=== PATIENT | female | born 1970 | race Caucasian/White ===

== ENCOUNTER 2016-07-21 10:16 | Emergency (ER) | payer OTHER ==
[2016-07-21 10:21] VITALS: RESP 16; TEMP 98.1
[2016-07-21] MEDS ORDERED: NS 1,000 ML IV ONE (10:35)
[2016-07-21 10:42] LABS: % IMMATURE GRANULYOCYTES 0.4 % (0.0-1.1); ABSOLUTE IMMATURE GRANULOCYTES 0.03 10^3/uL (0.00-0.10); ADD DIFF? NO; ADD MORPH? NO; ADD SCAN? NO; ATYPICAL LYMPHOCYTE FLAG 20 (0-99); FRAGMENT RBC FLAG 0 (0-99); HEMATOCRIT 42.6 % (38.0-47.0); HEMOGLOBIN 13.9 g/dL (12.6-16.3); LEFT SHIFT FLG 0 (0-99); LIPEMIA HEMOLYSIS FLAG 80 (0-99); MEAN CELL HEMOGLOBIN 28.1 pg (27.9-34.1); MEAN CELL HEMOGLOBIN CONCENTR. 32.6 g/dL (32.4-36.7); MEAN CELL VOLUME 86.2 fL (81.5-99.8); MEAN PLATELET VOLUME 10.9 fL (8.7-11.7); PLATELET CLUMPS FLAG 0 (0-99); PLATELET COUNT 294 10^3/uL (150-400); RED BLOOD CELL COUNT 4.94 10^6/uL (4.18-5.33); RED CELL DISTRIBUTION WIDTH 13.7 % (11.5-15.2)
[2016-07-21 10:53] LABS: ALANINE AMINOTRANSFERASE 60 IU/L (9-52); ALKALINE PHOSPHATASE 89 IU/L (38-126); ANION GAP 9 mEq/L (8-16); ASPARTATE AMINOTRANSFERASE 39 IU/L (14-46); BILIRUBIN,TOTAL 0.8 mg/dL (0.1-1.4); BILIRUBIN-CONJUGATED 0.3 mg/dL (0.0-0.5); BILIRUBIN-UNCONJUGATED 0.5 mg/dL (0.0-1.1); CALCIUM 9.1 mg/dL (8.5-10.4); CARBON DIOXIDE 25 mEq/l (22-31); CHLORIDE 106 mEq/L (97-110); CREATININE 0.6 mg/dL (0.6-1.0); GLOMERULAR FILTRATION RATE > 60; GLUCOSE 87 mg/dL (70-100); POTASSIUM 4.1 mEq/L (3.5-5.2); SODIUM 140 mEq/L (134-144); TOTAL PROTEIN 7.2 g/dL (6.3-8.2)
[2016-07-21] MEDS ORDERED: ONDANSETRON 4 MG/2 ML VIAL ONE (11:34)
[2016-07-21] MEDS ORDERED: ONDANSETRON 4 MG/2 ML VIAL IVP ONE (11:37)
--- NOTE | 2016-07-21 11:51 | US ---
Sonography Limited to the Right Upper Quadrant of the Abdomen Clinical History: 46-year-old female in the Emergency Department complaining of right upper quadrant pain for 5 days. Rule out cholelithiasis. Technique: A curvilinear 5 MHz transducer was used to sonographically evaluate the right upper quadra nt of the abdomen. Color Doppler was also used. Comparison Study: Contrast-enhanced CT scan of the abdomen, dated July 14, 2014. Findings: The pancreatic contour is normal with limited assessment of the pancreatic tail, secondary to overlying bowel gas. The abdominal aorta is normal in size, and tapers normally. The visualized I VC is normal in caliber. The hepatic vein trifurcation is normal, and the main portal vein is patent. There is no ascites or right pleural effusion. The liver is normal in size, measuring 13.5 cm along the right midaxillary line, and there is mild diffuse increased echogenicity, consistent with steatos is. In the inferior right hepatic lobe, there is a stable-appearing rounded anechoic cyst with throug h-transmission, measuring 1.1 x 1.5 x 1.4 cm. There is no intrinsic vascularity. There is no intra or extrahepatic bile duct dilatation. The common bile duct measures 3.4 mm. The gallbladder is moderate ly distended, with no stones, sludge, wall thickening, pericholecystic fluid, or sonographic Galarza s ign. The right kidney is normal, measuring 10.2 x 5.2 x 5.2 cm. The renal cortical thickness is 1.2 c m. There is no hydronephrosis or focal renal mass. Impression: 1. Mild diffuse hepatic steatosis with a stable simple-appearing 1.5-cm cyst in the inferior right he patic lobe, which was seen on previous CT imaging in June 2014. 2. Normal appearance to the gallbladder. If there is further clinical concern regarding potential gallbladder dyskinesia, a nuclear medicine h epatobiliary scan and gallbladder ejection fraction could be considered. Results were discussed with Dr. William Lira. A Document Only message has been documented for William Lira in the [employer] system on 07/21/2016 11:44, Message ID [id number].
[2016-07-21] MEDS ORDERED: HYDROCODONE/APAP 5/325 TAB ONE (12:27)
--- NOTE | 2016-07-21 12:27 | EDPHY ---
H & P Stated Complaint: 4 days ruq abd pain Time Seen by Provider: 07/21/16 10:25 HPI/ROS: CHIEF COMPLAINT: Diarrhea, right upper quadrant pain HISTORY OF PRESENT ILLNESS: The patient presents to the ED for evaluation of 4 days of right upper quadrant pain and diarrhea. The patient denies recent antibiotic usage. She does have a history of irritable bowel syndrome. Patient denies dysuria. The patient denies nausea or vomiting. She reports moderate pain that is worsened with movement in her right upper quadrant. She denies additional complaints. The patient does have a past surgical history noteworthy for appendectomy. REVIEW OF SYSTEMS: A comprehensive 10 point review of systems is otherwise negative aside from elements mentioned in the history of present illness. Source: Patient Exam Limitations: No limitations - Personal History LMP (Females 10-55): 22-28 Days Ago Current Tetanus/Diphtheria Vaccine: Yes - Medical/Surgical History Hx Asthma: No Hx Chronic Respiratory Disease: No Hx Diabetes: No Hx Cardiac Disease: No Hx Renal Disease: No Hx Cirrhosis: No Hx Alcoholism: No Hx HIV/AIDS: No Hx Splenectomy or Spleen Trauma: No Other PMH: FIBROMYALGIA HTN SCIATICA IRRITABLE BOWEL CHRONIC FATIGUE/appy - Social History Smoking Status: Never smoked Alcohol Use: None Drug Use: None - Physical Exam Exam: General Appearance: Alert, no distress Eyes: Pupils equal and round no pallor or injection ENT, Mouth: Mucous membranes moist Respiratory: There are no retractions, lungs are clear to auscultation Cardiovascular: Regular rate and rhythm Gastrointestinal: Minimal tenderness to palpation right upper quadrant, no peritoneal signs Neurological: A&O, normal motor function, normal sensory exam, normal cranial nerves Skin: Warm and dry, no rashes Musculoskeletal: Neck is supple nontender Extremities: symmetrical, full range of motion Psychiatric: Patient is oriented X 3, there is no agitation Constitutional: Initial Vital Signs Temperature (C) 36.7 C 07/21/16 10:19 Heart Rate 60 07/21/16 10:19 Respiratory Rate 16 07/21/16 10:19 Blood Pressure 122/88 H 07/21/16 10:19 O2 Sat (%) 98 07/21/16 10:19 O2 Delivery Mode Room Air Allergies/Adverse Reactions: Sulfa (Sulfonamide Antibiotics) Allergy (Verified 07/21/16 10:17) Home Medications: Medication Instructions Recorded Atenolol [Tenormin] 100 mg PO DAILY 07/14/14 Cholecalciferol (Vitamin D3) 5,000 unit PO DAILY 07/14/14 [Vitamin D3] Cyclobenzaprine [Flexeril] 10 mg PO HS 07/14/14 Gabapentin [Neurontin 300 MG (RX)] 300 mg PO BID@09,13 07/14/14 Gabapentin [Neurontin 300 MG (RX)] 600 mg PO HS 07/14/14 Herbals/Supplements -Info Only 1 ea PO DAILY 07/14/14 Loratadine [Claritin 10 mg] 10 mg PO DAILY PRN 07/14/14 Multivitamins [Tab-A-Luna] 1 each PO DAILY 07/14/14 PARoxetine HCL [Paxil 10mg (RX)] 10 mg PO HS 07/14/14 Hydrocodone/APAP 5/325 [Oketo 1 - 2 each PO Q6 PRN #20 tab 07/21/16 5/325] Ondansetron Odt [Zofran Odt] 4 mg PO Q4PRN PRN #20 tab 07/21/16 Medical Decision Making ED Course/Re-evaluation: The patient had an IV established. She received a L of normal saline. She received IV Zofran and morphine. Given her right upper quadrant tenderness a ultrasound was ordered which demonstrates no evidence of cholelithiasis or cholecystitis. The patient's liver function tests, lipase and electrolytes are within normal limits. The patient did have serial examinations in the ED. She presents to the ED with abdominal pain and diarrhea. She is afebrile well-appearing. At this point time I will treat her for gastroenteritis with pain medications and give her customary aftercare instructions. The patient will be discharged home. She is advised to follow up with Gastroenterology for any ongoing abdominal complaints. She is given customary return precautions. Differential Diagnosis: Differential diagnosis considered includes cholecystitis, cholelithiasis, pancreatitis, gastroenteritis, irritable bowel syndrome, inflammatory bowel disease - Data Points Laboratory Results: Laboratory Results 07/21/16 10:31 07/21/16 10:31 07/21/16 10:31 WBC 8.26 10^3/uL (3.80-9.50) RBC 4.94 10^6/uL (4.18-5.33) Hgb 13.9 g/dL (12.6-16.3) Hct 42.6 % (38.0-47.0) MCV 86.2 fL (81.5-99.8) MCH 28.1 pg (27.9-34.1) MCHC 32.6 g/dL (32.4-36.7) RDW 13.7 % (11.5-15.2) Plt Count 294 10^3/uL (150-400) MPV 10.9 fL (8.7-11.7) Neut % (Auto) 64.4 % (39.3-74.2) Lymph % (Auto) 25.9 % (15.0-45.0) [place] % (Auto) 6.3 % (4.5-13.0) Eos % (Auto) 2.4 % (0.6-7.6) Baso % (Auto) 0.6 % (0.3-1.7) Nucleat RBC Rel Count 0.0 % (0.0-0.2) Absolute Neuts (auto) 5.32 10^3/uL (1.70-6.50) Absolute Lymphs (auto) 2.14 10^3/uL (1.00-3.00) Absolute Monos (auto) 0.52 10^3/uL (0.30-0.80) Absolute Eos (auto) 0.20 10^3/uL (0.03-0.40) Absolute Basos (auto) 0.05 10^3/uL (0.02-0.10) Absolute Nucleated RBC 0.00 10^3/uL (0-0.01) Immature Gran % 0.4 % (0.0-1.1) Immature Gran # 0.03 10^3/uL (0.00-0.10) Sodium 140 mEq/L (134-144) Potassium 4.1 mEq/L (3.5-5.2) Chloride 106 mEq/L (97-110) Carbon Dioxide 25 mEq/l (22-31) Anion Gap 9 mEq/L (8-16) BUN 10 mg/dL (7-23) Creatinine 0.6 mg/dL (0.6-1.0) Estimated GFR > 60 Glucose 87 mg/dL (70-100) Calcium 9.1 mg/dL (8.5-10.4) Total Bilirubin 0.8 mg/dL (0.1-1.4) Conjugated Bilirubin 0.3 mg/dL (0.0-0.5) Unconjugated Bilirubin 0.5 mg/dL (0.0-1.1) AST 39 IU/L (14-46) ALT 60 H IU/L (9-52) Alkaline Phosphatase 89 IU/L (38-126) Total Protein 7.2 g/dL (6.3-8.2) Albumin 4.0 g/dL (3.5-5.0) Lipase 68.0 IU/L (23-300) Medications Given: Discontinued Medications Sodium Chloride (Ns) 1,000 mls @ 0 mls/hr IV ONCE ONE PRN Reason: Wide Open Stop: 07/21/16 10:36 Last Admin: 07/21/16 10:40 Dose: 1,000 mls Morphine Sulfate (Morphine) 2 mg IVP EDNOW ONE Stop: 07/21/16 11:38 Last Admin: 07/21/16 11:40 Dose: 2 mg Ondansetron HCl (Zofran) 4 mg IVP EDNOW ONE Stop: 07/21/16 11:38 Last Admin: 07/21/16 11:40 Dose: 4 mg Departure - Departure Disposition: Home, Routine, Self-Care Clinical Impression: Abdominal pain, Diarrhea Condition: Good Instructions: Gastroenteritis (ED) Additional Instructions: 1. Take Imodium as needed for diarrhea. 2. Zofran as needed for nausea. 3. Oketo as needed for pain 4. Please follow up with a circuit board inspector you have been referred to for further evaluation of your symptoms. 5. Please follow-up with your primary care provider as scheduled. Referrals: Etta Pelaez MD [Primary Care Provider] - As per Instructions James Tellez MD [Medical Doctor] - As per Instructions
[2016-07-21 12:38] VITALS: BP 125/82; PULSE 61; O2SAT 92
== END 2016-07-21 12:37 | disposition home or self-care (01) ==
DX: R10.11 Right upper quadrant pain (principal); R19.7 Diarrhea, unspecified; I10 Essential (primary) hypertension
CPT/HCPCS: 96374; J2405

== ENCOUNTER 2017-08-28 10:25 | Day surgery (SDC) | payer OTHER ==
[2017-08-28] MEDS ORDERED: LR 1,000 ML IV ONE (10:47)
[2017-08-28 11:06] VITALS: PULSE 77
[2017-08-28] MEDS ORDERED: PROPOFOL 200 MG/20 ML VIAL ONE (11:55)
[2017-08-28] MEDS ORDERED: PROPOFOL/EMULSION 500 MG/50 ML BOTTLE IV ONE (11:55)
[2017-08-28] MEDS ORDERED: LIDOCAINE 2% 5 ML SDV ONE (11:55)
--- NOTE | 2017-08-28 11:57 | PDANEPAE ---
ANE History of Present Illness EGD, colonoscopy ANE Past Medical History - Cardiovascular History Hx Hypertension: Yes Hx Arrhythmias: No Hx Chest Pain: No Hx Coronary Artery / Peripheral Vascular Disease: No Hx CHF / Valvular Disease: No Hx Palpitations: No - Pulmonary History Hx COPD: No Hx Asthma/Reactive Airway Disease: No Hx Recent Upper Respiratory Infection: No Hx Oxygen in Use at Home: No Hx Sleep Apnea: No Sleep Apnea Screening Result - Last Documented: Negative - Neurologic History Hx Cerebrovascular Accident: No Hx Seizures: No Hx Dementia: No - Endocrine History Hx Diabetes: No - Renal History Hx Renal Disorders: No Renal History Comment: URGENCY & DIFF URINATING - Liver History Hx Hepatic Disorders: No - Neurological & Psychiatric Hx Hx Neurological and Psychiatric Disorders: Yes Neurological / Psychiatric History Comment: ANXIETY & DEPRESSION - Cancer History Hx Cancer: No - Congenital Disorder History Hx Congenital Disorders: No - GI History Hx Gastrointestinal Disorders: Yes Gastrointestinal History Comment: DIARRHEA CURRENTLY - Other Health History Other Health History: ACNE - Chronic Pain History Chronic Pain: Yes (BACK PAIN, DDD, OSTEOARTHRITIS) - Surgical History Prior Surgeries: TONSILLECTOMY. APPENDECTOMY. COLONOSCOPY ANE Review of Systems Review of Systems: - Exercise capacity METS (RN): 4 METS ANE Patient History - Allergies Allergies/Adverse Reactions: Sulfa (Sulfonamide Antibiotics) Allergy (Verified 08/21/17 10:24) - Home Medications Home Medications: Metoprolol Tartrate [Lopressor 50 mg (*)] 50 mg PO BID 08/07/17 [Last Taken 02/06 21:00] Imodium 2 mg (*) 08/12/17 [Last Taken 08/27/17 21:00] Microgestin 21 1.5-30 Tab 08/12/17 [Last Taken 08/27/17 21:00] Multivitamin (*) 08/12/17 [Last Taken 08/27/17 21:00] Zyrtec 08/12/17 [Last Taken 08/27/17 21:00] Hyoscyamine Sulfate 08/21/17 [Last Taken 08/27/17 21:00] Methocarbamol 08/21/17 [Last Taken 08/27/17 21:00] Ranitidine HCl 08/21/17 [Last Taken 08/27/17 21:00] - NPO status NPO Since - Liquids (Date): 08/28/17 NPO Since - Liquids (Time): 08:00 NPO Since - Solids (Date): 08/27/17 NPO Since - Solids (Time): 23:00 - Smoking Hx Smoking Status: Former smoker - Family Anes Hx Family Hx Anesthesia Complications: NONE ANE Labs/Vital Signs - Vital Signs Blood Pressure: 144/87 Heart Rate: 77 Respiratory Rate: 18 O2 Sat (%): 98 Height: 163.83 cm Weight: 79.379 kg ANE Physical Exam - Airway Neck exam: FROM Mallampati Score: Class 2 - Pulmonary Pulmonary: clear to auscultation - Cardiovascular Cardiovascular: regular rate and rhythym - ASA Status ASA Status: II ANE Anesthesia Plan Anesthesia Plan: GA with mask Total IV Anesthesia: Yes
--- NOTE | 2017-08-28 12:04 | PDHPUP ---
History & Physical Update H&P update statement: This history and physical update is based on an assessment of the patient which was completed after admission or registration (within 24 hours), but prior to the surgery/procedure. H&P update: H&P reviewed & patient examined, no change in patient's condition since H&P completed H&P changes: none
--- NOTE | 2017-08-28 12:42 | POSTANESTH ---
Post Anesthetic Evaluation Cardiovascular Status: Normal, Stable Respiratory Status: Normal, Stable Level of Consciousness/Mental Status: Mildly Sleepy, Arousable Pain Control: Adequate, Prn Tx Ordered Nausea/Vomiting Control: Adequate, Prn Tx Ordered Complications Possibly Related to Anesthesia: None Noted
--- NOTE | 2017-08-28 12:44 | GIREPORT ---
[facility] Surgical Services - Endoscopy Department Patient Name: Madelyn Kwok Procedure Date: 08/28/2017 11:22 AM Patient Type: Outpatient Attending MD/ ER Physician: Cal Penny Procedure: Colonoscopy Indications: Clinically significant diarrhea of unexplained origin, Hematochezia Providers: Papi Duggan MD Referring MD: Etta Pelaez Medicines: Total IV Anesthesia (TIVA) = IV general Complications: No immediate complications. Estimated blood loss: Minimal. Description of Procedure: After obtaining informed consent, the scope was passed under direct vis ion. Throughout the procedure, the patient's blood pressure, pulse, and oxyg en saturations were monitored continuously. The Colonoscope with irrigatio n channel was introduced through the anus and advanced to the terminal il eum, with identification of the appendiceal orifice and IC valve. The colono scopy was performed without difficulty. The patient tolerated the procedure w ell. The quality of the bowel preparation was good. Findings: The digital rectal exam was normal. The terminal ileum appeared normal. The sigmoid colon, descending colon, transverse colon, ascending colon and cecum appeared normal. Biopsies for histology were taken with a cold fo rceps from the cecum, ascending colon, transverse colon, descending colon and sigmoid colon for evaluation of microscopic colitis. Estimated blood lo ss was minimal. A scattered area of mildly bsvgoszh-qufmjuc-fgmrcycpe mucosa was found in the rectum. Biopsies were taken with a cold forceps for histology. Umm mated blood loss was minimal. A 1 mm polyp was found in the rectum. The polyp was sessile. The polyp was removed with a cold biopsy forceps. Resection and retrieval were comple te. Estimated blood loss was minimal. Non-bleeding internal hemorrhoids were found during retroflexion. The hemorrhoids were small. The exam was otherwise without abnormality. Estimated Blood Loss: Estimated blood loss was minimal. Post Op Diagnosis: - The examined portion of the ileum was normal. - The sigmoid colon, descending colon, transverse colon, ascending colo n and cecum are normal. Biopsied. - Onqbrgyk-mzqaojs-kjnjuzhcy mucosa in the rectum. Biopsied. - One 1 mm polyp in the rectum, removed with a cold biopsy forceps. Res ected and retrieved. - Non-bleeding internal hemorrhoids. - The examination was otherwise normal. Recommendation: - Await pathology results. - My office will call with the pathology result with 5-7 days. If you h ave not heard from my office by 06-04, do not assume the pathology is helene l, please call [phone] to get the pathology results. - Repeat colonoscopy in 10 years for surveillance based on pathology re sults. - Resume previous diet. - Patient has a contact number available for emergencies. The signs and symptoms of potential delayed complications were discussed with the pat ient. Return to normal activities tomorrow. Written discharge instructions we re provided to the patient. - Continue present medications. - See EGD for other recommendations - Discharge patient to home (ambulatory). - Return to primary care physician as previously scheduled. - Return to GI clinic in 3 weeks. - Thank you for allowing me to help in your patient's care. Do not hesi bradley to call with any questions. Attending Participation: I personally performed the entire procedure. Olga Lidia Turpin M.D Papi Duggan MD 08/28/2017 12:43:59 PM This report has been signed electronicallyMathew MD Olga Lidia Number of Addenda: 0 Note Initiated On: 08/28/2017 11:22 AM Total Procedure Duration Time 0 hours 15 minutes 47 seconds [email or web address]
--- NOTE | 2017-08-28 12:49 | GIREPORT ---
[facility] Surgical Services - Endoscopy Department Patient Name: Madelyn Kwok Procedure Date: 08/28/2017 11:55 AM Patient Type: Outpatient Attending MD/ ER Physician: Cal Penny Procedure: Upper GI endoscopy Indications: Heartburn, Diarrhea, Nausea Providers: Papi Duggan MD Referring MD: Etta Pelaez Medicines: Total IV Anesthesia (TIVA) = IV general Complications: No immediate complications. Estimated blood loss: Minimal. Description of Procedure: After obtaining informed consent, the endoscope was passed under direct vision. Throughout the procedure, the patient's blood pressure, pulse, and oxygen saturations were monitored continuously. The Endoscope was intro duced through the mouth, and advanced to the third part of duodenum. The uppe r GI endoscopy was accomplished without difficulty. The patient tolerated th e procedure well. Findings: The examined esophagus was normal. A large hiatal hernia was present. Scattered mild inflammation characterized by congestion (edema), erythe ma and granularity was found in the gastric antrum. Biopsies were taken wi th a cold forceps for histology. Estimated blood loss was minimal. Scattered moderate inflammation characterized by congestion (edema), erythema, friability and granularity was found in the duodenal bulb, in the second portion of the duodenum and in the third portion of the duodenum . Biopsies were taken with a cold forceps for histology. Estimated blood loss was minimal. The exam was otherwise without abnormality. Estimated Blood Loss: Estimated blood loss was minimal. Post Op Diagnosis: - Normal esophagus. - Large hiatal hernia. Query para-esophageal hernia. - Gastritis. Biopsied. - Duodenitis. Biopsied. - The examination was otherwise normal. Recommendation: - Await pathology results. - My office will call with the pathology result with 5-7 days. If you h ave not heard from my office by 06-04, do not assume the pathology is helene l, please call [phone] to get the pathology results. - Perform a colonoscopy today. - Do an upper GI series at appointment to be scheduled. If a para-esoph ageal hernia is confirmed, then referral to surgeon. - Use Protonix (pantoprazole) 40 mg PO daily. Take 30-60 minutes before breakfast - Use Zantac (ranitidine) 300 mg PO at bedtime. - Return to primary care physician as previously scheduled. - Return to GI clinic in 3 weeks. - Thank you for allowing me to help in your patient's care. Do not hesi bradley to call with any questions. Attending Participation: I personally performed the entire procedure. Olga Lidia Turpin M.D Papi Duggan MD 08/28/2017 12:49:16 PM This report has been signed electronicallyMathew MD Olga Lidia Number of Addenda: 0 Note Initiated On: 08/28/2017 11:55 AM [email or web address]
[2017-08-28 14:05] VITALS: TEMP 97.3; O2SAT 95
[2017-08-28 17:57] VITALS: BP 123/90; RESP 16
== END 2017-08-28 14:00 | disposition home or self-care (01) ==
LOC: FSGY 10:25
PROVIDERS: ATTEND Internal Medicine Gastroenterology
PROC: 0DBP4ZX Excision of Rectum, Percutaneous Endoscopic Approach, Diagnostic (ICD-10-PCS; principal; 2017-08-28 12:00)
PROC: 0DBL4ZX Excision of Transverse Colon, Percutaneous Endoscopic Approach, Diagnostic (ICD-10-PCS; principal; 2017-08-28 12:00)
PROC: 0DBM4ZX Excision of Descending Colon, Percutaneous Endoscopic Approach, Diagnostic (ICD-10-PCS; principal; 2017-08-28 12:00)
PROC: 0DBK4ZX Excision of Ascending Colon, Percutaneous Endoscopic Approach, Diagnostic (ICD-10-PCS; principal; 2017-08-28 12:00)
PROC: 0DB64ZX Excision of Stomach, Percutaneous Endoscopic Approach, Diagnostic (ICD-10-PCS; principal; 2017-08-28 12:00)
PROC: 0DBH4ZX Excision of Cecum, Percutaneous Endoscopic Approach, Diagnostic (ICD-10-PCS; principal; 2017-08-28 12:00)
PROC: 0DBN4ZX Excision of Sigmoid Colon, Percutaneous Endoscopic Approach, Diagnostic (ICD-10-PCS; principal; 2017-08-28 12:00)
PROC: 0DB98ZX Excision of Duodenum, Via Natural or Artificial Opening Endoscopic, Diagnostic (ICD-10-PCS; principal; 2017-08-28 12:00)
DX: K62.1 Rectal polyp (principal); R12 Heartburn; R19.7 Diarrhea, unspecified; R11.0 Nausea; K92.1 Melena; R10.9 Unspecified abdominal pain; I10 Essential (primary) hypertension; M19.90 Unspecified osteoarthritis, unspecified site
CPT/HCPCS: J2704

== ENCOUNTER → 2017-09-10 | Outpatient (CLI) | payer OTHER | LOC: FIMAGING 09:13 | PROVIDERS: ATTEND Internal Medicine Gastroenterology | DX: K21.9 Gastro-esophageal reflux disease without esophagitis (principal) ==

== ENCOUNTER 2018-08-03 05:38 | Observation (INO) | payer BC ==
[2018-08-03] MEDS ORDERED: ceFAZolin 2 GM/DEXTROSE 100 ML IV ONE (06:03)
[2018-08-03] MEDS ORDERED: LR 1,000 ML IV ONE (06:12)
--- NOTE | 2018-08-03 06:48 | PDANEPAE ---
ANE Past Medical History - Cardiovascular History Hx Hypertension: Yes Hx Arrhythmias: No Hx Chest Pain: No Hx Coronary Artery / Peripheral Vascular Disease: No Hx CHF / Valvular Disease: No Hx Palpitations: No - Pulmonary History Hx COPD: No Hx Asthma/Reactive Airway Disease: No Hx Recent Upper Respiratory Infection: No Hx Oxygen in Use at Home: No Hx Sleep Apnea: No Sleep Apnea Screening Result - Last Documented: Negative - Neurologic History Hx Cerebrovascular Accident: No Hx Seizures: No Hx Dementia: No Neurologic History Comment: MIGRAINES - Endocrine History Hx Diabetes: No - Renal History Hx Renal Disorders: No Renal History Comment: URGENCY & DIFF URINATING - Liver History Hx Hepatic Disorders: No - Neurological & Psychiatric Hx Hx Neurological and Psychiatric Disorders: Yes Neurological / Psychiatric History Comment: ANXIETY - Cancer History Hx Cancer: No - Congenital Disorder History Hx Congenital Disorders: No - GI History Hx Gastrointestinal Disorders: Yes Gastrointestinal History Comment: ACID REFLUX - Other Health History Other Health History: ROSACEA. ECZEMA. DDD. FIBROMYALGIA - Chronic Pain History Chronic Pain: Yes (BACK PAIN,NECK, HIPS DDD, OSTEOARTHRITIS) - Surgical History Prior Surgeries: TONSILLECTOMY. APPENDECTOMY. COLONOSCOPY ANE Review of Systems Review of Systems: - Exercise capacity METS (RN): 4 METS ANE Patient History - Allergies Allergies/Adverse Reactions: Sulfa (Sulfonamide Antibiotics) Allergy (Severe, Verified 07/12/18 10:23) Swelling/neck,face,throat aspartame [artifical sweetener] Allergy (Verified 07/26/18 16:19) Beef Containing Products [beef] Allergy (Verified 07/26/18 16:19) cyclobenzaprine [From Flexeril] Allergy (Verified 07/26/18 16:12) ITCHING GENERALIZED egg [eggs] Allergy (Verified 07/26/18 16:19) Milk Containing Products [dairy] Allergy (Verified 07/26/18 16:17) monosodium glutamate Allergy (Verified 07/26/18 16:19) peanut Allergy (Verified 07/26/18 16:19) ALMONDS Allergy (Uncoded 07/26/18 16:19) - Home Medications Home medications: home medication list seen and reviewed Home Medications: Metoprolol Tartrate [Lopressor 50 mg (*)] 50 mg PO BID 07/12/18 [Last Taken 05/10 21:00] Pregabalin [Lyrica 75mg (*)] 75 mg PO BID 07/12/18 [Last Taken 08/02/18 15:00] Tears/Dextran 70/Hypromellose [Natural Balance Tears (*)] 1 drop EACHEYE Q2H PRN 07/12/18 [Last Taken 08/02/18 21:00] diphenhydrAMINE [Benadryl 25 MG (*)] 25 mg PO HS PRN 07/12/18 [Last Taken 21:00] Regi Allergy 180 mg PO DAILY 07/26/18 [Last Taken 08/02/18] Aspirin 325 mg PO PRN 07/26/18 [Last Taken 07/20/18] Multivitamin 07/26/18 [Last Taken 07/20/18] Tizanidine HCl 1 mg PO DAILY 07/26/18 [Last Taken 08/02/18 21:00] - NPO status NPO Since - Liquids (Date): 08/03/18 NPO Since - Liquids (Time): 04:15 NPO Since - Solids (Date): 08/02/18 NPO Since - Solids (Time): 19:00 - Smoking Hx Smoking Status: Former smoker - Family Anes Hx Family Hx Anesthesia Complications: NONE ANE Labs/Vital Signs - Labs - CBC Platelet Count: 234 - Vital Signs Vital Signs: reviewed preoperatively; see RN documention for details Blood Pressure: 142/93 Heart Rate: 71 Respiratory Rate: 12 Height: 163.83 cm Weight: 81.647 kg ANE Physical Exam - Airway Neck exam: FROM Mallampati Score: Class 2 Mouth exam: normal dental/mouth exam - Pulmonary Pulmonary: clear to auscultation - Cardiovascular Cardiovascular: regular rate and rhythym - ASA Status ASA Status: II ANE Anesthesia Plan Anesthesia Plan: general endotracheal anesthesia Regional Anesthesia: single shot NB
[2018-08-03] MEDS ORDERED: MIDAZOLAM 2 MG/2 ML VIAL IVP ONE (07:00)
[2018-08-03] MEDS ORDERED: fentaNYL 100 MCG/2 ML INJ ONE ×2 (07:01→09:53)
[2018-08-03] MEDS ORDERED: PROPOFOL 200 MG/20 ML VIAL ONE (07:01)
[2018-08-03] MEDS ORDERED: VASOPRESSIN 20 UNIT/ML VIAL ONE (07:01)
[2018-08-03] MEDS ORDERED: morphINE PF 5 MG/10 ML INJ ONE (07:04)
[2018-08-03] MEDS ORDERED: MIDAZOLAM 2 MG/2 ML VIAL ONE (07:09)
[2018-08-03] MEDS ORDERED: METOPROLOL TARTRATE 5 MG/5 ML INJ ONE (07:16)
--- NOTE | 2018-08-03 07:22 | PDHPUP ---
History & Physical Update H&P update statement: This history and physical update is based on an assessment of the patient which was completed after admission or registration (within 24 hours), but prior to the surgery/procedure. H&P update: H&P reviewed & patient examined, no change in patient's condition since H&P completed
[2018-08-03] MEDS ORDERED: DEXAMETHASONE 4 MG/ML VIAL ONE ×2 (07:49)
[2018-08-03] MEDS ORDERED: NITROGLYCERIN 50 MG/10 ML SDV IV ONE (08:15)
[2018-08-03] MEDS ORDERED: LABETALOL HCL 5 MG/ML 20 ML MDV ONE (08:15)
[2018-08-03] MEDS ORDERED: ONDANSETRON 4 MG/2 ML VIAL ONE ×2 (09:09→11:50)
[2018-08-03] MEDS ORDERED: DEXAMETHASONE 4 MG/ML VIAL IVP PRN (09:15)
[2018-08-03] MEDS ORDERED: ALBUTEROL 3 ML DEYVIAL IH PRN (09:15)
[2018-08-03] MEDS ORDERED: LABETALOL HCL 5 MG/ML 20 ML MDV IVP PRN (09:15)
[2018-08-03] MEDS ORDERED: METOCLOPRAMIDE 10 MG/2 ML VIAL IVP PRN (09:15)
[2018-08-03] MEDS ORDERED: NALOXONE HCL 0.4 MG/ML INJ IVP PRN ×2 (09:15→09:16)
[2018-08-03] MEDS ORDERED: LR 500 ML IV PRN (09:15)
[2018-08-03] MEDS ORDERED: PROMETHAZINE HCL 25 MG/ML INJ IVP PRN (09:15)
[2018-08-03] MEDS ORDERED: ONDANSETRON 4 MG/2 ML VIAL IVP PRN ×2 (09:15→10:40)
[2018-08-03] MEDS ORDERED: MEPERIDINE 25 MG/0.5 ML AMP IVP PRN (09:15)
[2018-08-03] MEDS ORDERED: KETOROLAC 30 MG/1 ML SDV ONE (09:25)
[2018-08-03] MEDS: fentaNYL 100 MCG/2 ML INJ IVP PRN ×2 (09:53→10:05)
[2018-08-03] MEDS ORDERED: HYDROmorphONE/DILAUDID 2 MG/ML INJ ONE (09:53)
[2018-08-03] MEDS: HYDROmorphONE/DILAUDID 2 MG/ML INJ IVP PRN ×5 (09:56→11:40)
[2018-08-03] MEDS ORDERED: DIAZEPAM 5 MG/ML 1 ML SYR ONE ×2 (10:01→10:24)
[2018-08-03] MEDS: DIAZEPAM 5 MG/ML 1 ML SYR IVP PRN ×2 (10:02→10:29)
[2018-08-03] MEDS ORDERED: KETOROLAC 30 MG/1 ML SDV IVP ONE (10:40)
[2018-08-03] MEDS ORDERED: OXYCODONE/APAP 5/325 TAB PO PRN (10:40)
--- NOTE | 2018-08-03 10:40 | POSTOPPROG ---
Post Op Note Date of Operation: 08/03/18 Surgeon: Madelyn Grady Deli Manager: Sue MEDINA Anesthesiologist: Dinora Purdy Anesthesia: LMA, Spinal Pre-op Diagnosis: symptomatic fibroids Post-op Diagnosis: same Indication: same Procedure: TVH with morcellation of fibroid Findings: 16 week sized uterus Inf/Abcess present in the surg proc area at time of surgery?: No EBL: 100-500 Complications: none
[2018-08-03] MEDS ORDERED: LR 1,000 ML IV SCH (11:00)
--- NOTE | 2018-08-03 11:19 | POSTANESTH ---
Post Anesthetic Evaluation Cardiovascular Status: Normal, Stable Respiratory Status: Normal, Stable Level of Consciousness/Mental Status: Can Participate in Eval Pain Control: Inadeq, Add Tx Required Nausea/Vomiting Control: Adequate, Prn Tx Ordered Complications Possibly Related to Anesthesia: None Noted
[2018-08-03] MEDS ORDERED: OXYCODONE/APAP 5/325 TAB ONE (11:38)
[2018-08-03] MEDS ORDERED: ONDANSETRON DISINTEGRATING 4 MG TAB ONE (11:45)
--- NOTE | 2018-08-03 12:56 | GOP ---
[f rep st] OPERATIVE REPORT DATE OF OPERATION: 08/03/2018 SURGEON: Madelyn Grady MD CORPORATE QUALITY ENGINEER: ADAM Ceron. ANESTHESIA: General with LMA and then also a spinal morphine for postop pain control. ANESTHESIOLOGIST: Dinora Purdy MD PREOPERATIVE DIAGNOSIS: Symptomatic large uterine fibroids. POSTOPERATIVE DIAGNOSIS: Symptomatic large uterine fibroids. PROCEDURE PERFORMED: Total vaginal hysterectomy with vaginal morcellation of very large uterine fibr oids. FINDINGS: ESTIMATED BLOOD LOSS: 300 cc. INDICATIONS: Patient is a 48-year-old, G0, who has a known history of an enlarging uterine fibroids. Last ultrasound done in April 2018 showed several fibroids, largest measuring 10 cm, and on rece nt pelvic exam, her uterus is about 16 week size. She has had no vaginal births and now desires defi nitive therapy because she is having bladder retention and pelvic floor pressure. DESCRIPTION OF PROCEDURE: With informed consent signed, patient taken to the operating room and plac ed under spinal then general anesthesia, placed in the high dorsal lithotomy position, prepped and dr aped in the usual sterile fashion. Wang catheter placed. Two tenaculum placed on the cervix and a posterior colpotomy performed using the Driscoll scissors and then the peritoneal edge of the posterior c ul-de-sac and the vaginal mucosa were approximated with a running baseball stitch. The aardvark spec ulum was placed into the posterior cul-de-sac for traction. So the left uterosacral ligament was cla mped, cut, and suture ligated. The same was done on the right. The cardinal ligaments were clamped, cut, and suture ligated. Successive bites up the cervix into the lower uterine segment to free up t he cervix and uterus were done and then the uterine vessels on each side were clamped, cut, and sutur e ligated. There was an anterior fibroid pushing into the bladder and the anterior peritoneum was di ssected off the lower uterine segment until the anterior cul-de-sac was entered. At this point, the uterus was inverted and the fundus of the uterus was at the operating site near the vaginal introitus and then this was injected with 10 cc of dilute Pitressin, which was 2 units in 30 cc, and then the scalpel was used to morcellate the fibroid in multiple large chunks to remove vaginally. This took a bout 40 minutes and then the uterus was re-inverted back to its normal position and the utero-ovarian ligament on each side was clamped, cut, and suture ligated and the specimen was completely removed a nd handed off for specimen. At this point, the pedicles were all inspected and noted to be hemostati c. There was slight bleeding on the left and this was cauterized and suture ligated. Next, a Freeman 's culdoplasty performed. Grasping the 6 o'clock position of the vaginal cuff, grasping the left elidia rosacral ligament, several bites of the posterior cul-de-sac and then the right uterosacral ligament and then out the same entry point. This was tied off obliterating the cul-de-sac and then figure-of- eight sutures were placed on the vaginal cuff for closure. The patient was placed in supine position , awakened in the operating room, taken to the recovery room in stable condition, having tolerated th e procedure well. Lastly of note, the uterus was 16 weeks size and very difficult morcellation vagin ally, but done without complication. COMPLICATIONS: None. /[id number]/MODL
[2018-08-03] MEDS ORDERED: PROMETHAZINE HCL 25 MG TAB PO PRN (13:39)
[2018-08-03] MEDS ORDERED: DIAZEPAM 5 MG TAB PO PRN (13:41)
[2018-08-03] MEDS ORDERED: oxyCODONE IR 5 MG TAB PO PRN (16:13)
[2018-08-03] MEDS: KETOROLAC 30 MG/1 ML SDV IVP PRN ×2 (17:15→23:15)
[2018-08-04] MEDS: KETOROLAC 30 MG/1 ML SDV IVP PRN (05:38)
[2018-08-04 08:46] VITALS: BP 106/73
--- NOTE | 2018-08-04 11:04 | SOAPPROG ---
SOAP Progress Note Assessment/Plan: Assessment:POD #1 doing better , ok for D/C home Plan:D/C home , f/u in 1-2 weeks , rx written for percocet Subjective: pain under better control , urinating and min bleeding Objective: Vital Signs Temp Pulse Resp BP Pulse Ox 36.3 C 78 17 106/73 97 08/04/18 08:00 08/04/18 08:00 08/04/18 08:00 08/04/18 08:00 08/04/18 08:00 Laboratory Results 08/04/18 05:45 08/03/18 08/04/18 08/05/18 05:59 05:59 05:59 Intake Total 2989 Output Total 2050 Balance 939 abdomin soft, few BS , lungs CTA , ICD10 Worksheet Patient Problems: Problems Problem Status Onset Abdominal pain Acute Acute appendicitis Acute Diarrhea Acute
== END 2018-08-04 11:40 | disposition home or self-care (01) ==
LOC: F3N 05:38 → F3E 07:25 → FOB 12:45
PROVIDERS: ADMIT Obstetrics & Gynecology Gynecology; ATTEND Obstetrics & Gynecology Gynecology
PROC: 0UT97ZZ Resection of Uterus, Via Natural or Artificial Opening (ICD-10-PCS; principal; 2018-08-03 07:15)
DX: D25.9 Leiomyoma of uterus, unspecified (principal); N93.9 Abnormal uterine and vaginal bleeding, unspecified; R33.9 Retention of urine, unspecified
CPT/HCPCS: 58290; G0378; J0690; J1100; J1170; J1885; J2250; J2274; J2405; J2704; J3010; J3360

== ENCOUNTER 2018-08-11 03:35 | Observation (INO) | payer BC ==
[2018-08-11] MEDS ORDERED: MAGNESIUM CITRATE 300 ML BOTTLE PO ONE (04:18)
[2018-08-11] MEDS ORDERED: NS 1,000 ML IV ONE (04:18)
--- NOTE | 2018-08-11 04:30 | EDPHY ---
H & P Stated Complaint: no bm x 4 day s/p hyst Time Seen by Provider: 08/11/18 03:52 HPI/ROS: Chief Complaint: Constipation HPI: 48-year-old woman who is 8 days status post abdominal hysterectomy for uterine fibroids. Patient has not had a bowel movement for 4 days. She was initially started on Percocet but did not tolerate these is been taking tramadol for the pain. She has tried 1 ducolocs and taken some milk of magnesia without success. She is complaining of a full sensation in the rectum in feels like she has to have a bowel movement. Some nausea but no vomiting. Abdominal pain is improving after her surgery. No fevers or chills. ROS: 10 systems were reviewed and were negative except those elements noted in the HPI. PMH: Uterine fibroids status post hysterectomy, degenerative disc disease, fibromyalgia Social History: No smoking, no alcohol, no recreational drug use Family History: non-contributory Physical Exam: Gen: Awake, Alert, No Distress HEENT: Nose: no rhinorrhea Eyes: PERRLA, EOMI Mouth: Moist mucosa Neck: Supple, no JVD Chest: nontender, lungs clear to auscultation Heart: S1, S2 normal, no murmur Abd: Soft, non-tender, no guarding Back: no CVA tenderness, no midline tenderness Ext: no edema, non-tender Skin: no rash Neuro: CN II-XII intact, Sensation grossly intact, Strength 5/5 in bilateral upper and lower extremities - Personal History LMP (Females 10-55): Hysterectomy Current Tetanus/Diphtheria Vaccine: Yes Current Tetanus Diphtheria and Acellular Pertussis (TDAP): Yes - Medical/Surgical History Hx Asthma: No Hx Chronic Respiratory Disease: No Hx Diabetes: No Hx Cardiac Disease: No Hx Renal Disease: No Hx Cirrhosis: No Hx Alcoholism: No Hx HIV/AIDS: No Hx Splenectomy or Spleen Trauma: No Other PMH: FIBROMYALGIA HTN SCIATICA IRRITABLE BOWEL CHRONIC FATIGUE/appy - Social History Smoking Status: Former smoker Constitutional: Initial Vital Signs Temperature (C) 36.7 C 08/11/18 03:51 Heart Rate 58 L 08/11/18 03:51 Respiratory Rate 18 08/11/18 03:51 Blood Pressure 135/91 H 08/11/18 03:51 O2 Sat (%) 100 08/11/18 03:51 O2 Delivery Mode Room Air Allergies/Adverse Reactions: Sulfa (Sulfonamide Antibiotics) Allergy (Severe, Verified 07/12/18 10:23) Swelling/neck,face,throat aspartame [artifical sweetener] Allergy (Verified 07/26/18 16:19) Beef Containing Products [beef] Allergy (Verified 07/26/18 16:19) cyclobenzaprine [From Flexeril] Allergy (Verified 07/26/18 16:12) ITCHING GENERALIZED egg [eggs] Allergy (Verified 07/26/18 16:19) Milk Containing Products [dairy] Allergy (Verified 07/26/18 16:17) monosodium glutamate Allergy (Verified 07/26/18 16:19) peanut Allergy (Verified 07/26/18 16:19) ALMONDS Allergy (Uncoded 07/26/18 16:19) Home Medications: Medication Instructions Recorded Metoprolol Tartrate [Lopressor 50 50 mg PO BID 07/12/18 mg (*)] Tears/Dextran 70/Hypromellose 1 drop EACHEYE Q2H PRN 07/12/18 [Natural Balance Tears (*)] Multivitamins [Multivitamin (*)] 1 each PO DAILY 07/26/18 Medical Decision Making ED Course/Re-evaluation: Patient has had a small bowel movement please continue complain of severe rectal pain and discomfort. She has not been able to drink any other magnesium citrate. She is quite uncomfortable. She is tearful and crying. Plan will be for admission for continued care. I have discussed with Dr. Obrien, hospitalist for admission. - Data Points Medications Given: Discontinued Medications Sodium Chloride (Ns) 1,000 mls @ 0 mls/hr IV ONCE ONE; Wide Open PRN Reason: Protocol Stop: 08/11/18 04:19 Last Admin: 08/11/18 05:28 Dose: 1,000 mls Magnesium Citrate (Magnesium Citrate) 300 ml PO ONCE ONE Stop: 08/11/18 04:19 Last Admin: 08/11/18 05:28 Dose: 1 btl Departure - Departure Disposition: [facility] Inpatient Acute Clinical Impression: Constipation Condition: Fair Referrals: Etta Pelaez MD [Primary Care Provider] - As per Instructions
[2018-08-11 06:49] LABS: PLATELET COUNT 340 10^3/uL (150-400)
[2018-08-11 09:13] VITALS: BP 112/73
[2018-08-11] MEDS ORDERED: ONDANSETRON DISINTEGRATING 4 MG TAB PO PRN (10:52)
[2018-08-11] MEDS ORDERED: ACETAMINOPHEN 325 MG TAB PO PRN (10:52)
[2018-08-11] MEDS ORDERED: ONDANSETRON 4 MG/2 ML VIAL IVP PRN (10:52)
[2018-08-11] MEDS ORDERED: NS 1,000 ML IV SCH (11:00)
[2018-08-11] MEDS ORDERED: TEARS/DEXTRAN 70/HYPROMELLOSE 15 ML OPHT.BTL EACHEYE PRN (12:02)
--- NOTE | 2018-08-11 13:06 | GHP ---
[f rep st] HISTORY AND PHYSICAL DATE OF ADMISSION: 08/11/2018 CHIEF COMPLAINT: Constipation. HISTORY OF PRESENT ILLNESS: The patient is a 48-year-old female who had an abdominal hysterectomy ap proximately 8 days prior to presentation. She has had no bowel movement for 4 days. She has been ta karishma Percocet in the outpatient setting and tramadol. She had mild nausea but no vomiting. No fever , sweats, or night chills. No dyspnea, shortness of breath, or chest pain. REVIEW OF SYSTEMS: Comprehensive 10-point review of systems is negative other than noted in the HPI. PAST MEDICAL HISTORY: 1. Uterine fibroids. 2. Degenerative disk disease. PAST SURGICAL HISTORY: Hysterectomy. SOCIAL HISTORY: The patient is nonsmoker, nonalcohol. No recreational drugs. FAMILY HISTORY: Noncontributory. PHYSICAL EXAM: GENERAL: The patient is alert and oriented. VITAL SIGNS: Afebrile at 37.7, pulse i s 62, respiratory rate 17, blood pressure is 112/73. She is saturating 99% on room air. HEENT: Nor mocephalic. Atraumatic. Mucosal membranes are moist. Pupils equal, round, reactive to light. RESP IRATORY: Lungs are clear to auscultation bilaterally. CARDIOVASCULAR: S1, S2. No gallop or murmur noted. ABDOMEN: Bowel sounds are positive. Soft and nontender. There is no guarding or rigidity appreciated. EXTREMITIES: Within normal limits. There is no clubbing or cyanosis noted. SKIN: Wi thout rashes or lesions. NEUROLOGIC: The patient is focally intact. ALLERGIES: Sulfa, aspartame, beef, Flexeril, eggs, dairy, MSG, peanuts, almonds. HOME MEDICATIONS: 1. Lopressor. 2. Multivitamin. STUDIES AND PROCEDURES DONE: Abdominal x-ray noting questionable ileus. LABORATORY EVALUATION: White blood cells 12.29. ASSESSMENT AND PLAN: A 48-year-old female who presents emergency room with complaints of abdominal p ain, noted to be constipated. She did receive a bottle of magnesium citrate in the emergency room, a s well as intravenous hydration. Upon being admitted to the floor, the patient had a significantly l arge bowel movement and feels completely better. I have educated her with regard to discontinuing an y narcotic pain medications if possible and/or taking stool softeners as needed. She is in agreement with this plan. She will be discharged home and follow up in the outpatient setting with her primar y care provider, as well as her eyeglass frames inspector. There are no pending studies. DISCHARGE MEDICATIONS: Please refer to EMR form. I have continued the patient's previously prescrib ed Zantac, as well as Lopressor. I have not provided any prescriptions at the time of disposition. /[id number]/MODL
[2018-08-11] MEDS ORDERED: METOPROLOL TARTRATE 50 MG TAB PO SCH (21:00)
[2018-08-11] MEDS ORDERED: FAMOTIDINE 20 MG TAB PO SCH (21:00)
[2018-08-12] MEDS ORDERED: MULTIVITAMINS 1 EACH TAB PO SCH (09:00)
== END 2018-08-11 13:00 | disposition home or self-care (01) ==
LOC: FOB 08:45
PROVIDERS: ADMIT Family Medicine; ATTEND Family Medicine
DX: K59.09 Other constipation (principal); E86.0 Dehydration; Z98.890 Other specified postprocedural states; Z90.710 Acquired absence of both cervix and uterus
CPT/HCPCS: 74019; 96360; 99285; G0378